=== PATIENT | female | born 1985 | race Caucasian/White ===

== ENCOUNTER 2021-08-27 02:25 | Inpatient (IN) | payer OTHER, MEDICAID ==
[2021-08-27] VITALS (27 sets, daily range): BP systolic 123–181; BP diastolic 80–123
[~2021-08-27 02:25] MED LIST: CLONIDINE0.1 PO; NORVASC 5 MG TAB5 MG PO
--- NOTE | 2021-08-27 03:58 | NUR ---
PT ARRIVED TO ICU AT 0356 PER EMS VIA [facility]. PT INTUBATED UPON ARRIVAL. DR DE LEON PAGED FOR ORDERS
[2021-08-27 05:44] LABS: BE -2.1 mmol/L (-2 to +3); PCO2 33.6 mmHg (35.0-45.0); pH 7.426 (7.340-7.450)
[2021-08-27 05:49] LABS: PO2 450.4 mmHg (75.0-100.0)
[2021-08-27 07:25] LABS: ABSOLUTE BASOPHILS 0.1 thou/uL (0.0-0.2); ABSOLUTE EOSINOPHILS 0.2 thou/uL (0.0-0.7); ABSOLUTE NEUTROPHILS 6.8 thou/uL (1.6-8.1); BASOPHILS 0.7 %; HEMATOCRIT 28.5 % (37.0-47.0); HEMOGLOBIN 9.4 gm/dL (12.0-15.0)
[2021-08-27 07:27] LABS: ABSOLUTE LYMPHOCYTES 2.4 thou/uL (0.8-5.3); ABSOLUTE MONOCYTES 0.5 thou/uL (0.0-1.2); EOSINOPHILS 1.8 %; LYMPHOCYTES 24.1 %; MCH 25.3 pg (26.0-34.0); MCV 76.7 fL (80.0-100.0); MONOCYTES 5.3 %; MPV 8.7 fl. (7.2-11.1); NUCLEATED RBCS 0 /100WBC; PLATELET COUNT* 354 thou/uL (150-400); POLYS 68.1 %; RBC 3.71 mil/uL (4.20-5.00); RDW-CV 16.2 % (10.5-14.5)
[2021-08-27 07:42] LABS: ALBUMIN 2.9 g/dL (3.4-5.0); CALCIUM 8.5 mg/dL (8.5-10.1); MAGNESIUM 2.3 mg/dL (1.8-2.4); POTASSIUM 4.6 mmol/L (3.5-5.1); TOTAL BILIRUBIN 0.2 mg/dL (<0.1-1.0); TOTAL PROTEIN 7.1 g/dL (6.4-8.2)
[2021-08-27 10:24] LABS: % SATURATION 6 % (20-39); IRON 18 ug/dL (50-175)
--- NOTE | 2021-08-27 12:15 | 2DMMODE ---
[place] [address] 2 D/M-MODE ECHOCARDIOGRAM Name: LOZANOSADAF Johnston Room: [address] ADM IN M.R.#: [id number] Admission: 08/27/21 Attend Phys: Cheri Soto Discharge: Date of : 83 Date of Service: 08/27/21 1214 Report #: [id number] THIS REPORT FOR: cc: FAM - No family physician/PCP FAM - No family physician/PCP Atif Light MD [facility] ~ APPROVED REPORT Study performed: 08/27/2021 11:03:41 EXAM: Comprehensive 2D, Doppler, and color-flow Echocardiogram Patient Location: In-Patient Room #: 003 Status: routine BSA: 1.89 HR: 91 bpm BP: 127/94 mmHg Rhythm: NSR Other Information Study Quality: Good Indications Arrhythmia 2D Dimensions IVSd: 10.61 (7-11mm) LVOT Diam: 20.61 (18-24mm) LVDd: 46.85 mm PWd: 7.84 (7-11mm) Ascending Ao: 29.69 (22-36mm) LVDs: 33.92 (25-40mm) Aortic Root: 31.58 mm Volumes Left Atrial Volume (Systole) LA ESV Index: 17.10 mL/m2 Aortic Valve AoV Peak Darren.: 1.13 m/s AO Peak Gr.: 5.11 mmHg LVOT Max P.79 mmHg AO Mean Gr.: 3.56 mmHg LVOT Mean P.22 mmHg LVOT Max V: 0.97 m/s AO V2 VTI: 15.09 cm LVOT Mean V: 0.70 m/s SIMEON (VTI): 3.21 cm2 LVOT V1 VTI: 14.52 cm AI Bennett: 2.68 m/s2 [place] [address] 2 D/M-MODE ECHOCARDIOGRAM Name: SADAF LOZANO Room: [address] ADM IN .R.#: [id number] Admission: 08/27/21 Attend Phys: Cheri Soto Discharge: Date of : 83 Date of Service: 08/27/21 1214 Report #: [id number] AI PHT: 532.28 ms Mitral Valve E/A Ratio: 0.79 MV Decel. Time: 200.33 ms MV E Max Darren.: 0.56 m/s MV PHT: 58.10 ms MVA (PHT): 3.79 cm2 TDI E/Lateral E': 8.00 E/Medial E': 8.00 Medial E' Darren.: 0.07 m/s Lateral E' Darren.: 0.07 m/s Pulmonary Valve PV Peak Darren.: 0.86 m/s PV Peak Gr.: 2.95 mmHg Tricuspid Valve RAP Estimate: 5.00 mmHg TR Peak Gr.: 17.88 mmHg RVSP: 23.00 mmHg PA Pressure: 23.00 mmHg Left Ventricle The left ventricle is normal size. Severe septal hypokinesis There is normal left ventricular wall thickness. Left ventricular systolic function is mildly decreased. LVEF is 40-45%. Grade I - abnormal relaxation pattern. Right Ventricle The right ventricle is normal size. The right ventricular systolic function is normal. Atria The left atrium size is normal. The right atrium size is normal. Aortic Valve The Aortic valve is sclerotic. Mild aortic regurgitation. There is no aortic valvular stenosis. Mitral Valve The mitral valve is normal in structure. There is no mitral valve regurgitation noted. No evidence of mitral valve stenosis. Tricuspid Valve The tricuspid valve is normal in structure[place] [address] 2 D/M-MODE ECHOCARDIOGRAM Name: SADAF LOZANO Room: [address] IN [facility].#: [id number] Admission: 08/27/21 Attend Phys: Cheri Soto Discharge: Date of : 83 Date of Service: 08/27/21 1214 Report #: [id number] regurgitation. No pulmonary hypertension. Pulmonic Valve The pulmonary valve is normal in structure. There is no pulmonic valvular regurgitation. Great Vessels The aortic root is normal in size. IVC is normal in size and collapses >50% with inspiration. Pericardium Trace pericardial effusion. Small left pleural effusion. <Conclusion> LVEF is 40-45%. Severe septal hypokinesis The Aortic valve is sclerotic. Mild aortic regurgitation. Trace pericardial effusion. <ELECTRONICALLY SIGNED> By: Atif Light MD, FACC 08/27/21 1214 13 13 Atif Light MD, FACC /INF
--- NOTE | 2021-08-27 12:41 | CON ---
[address] [address] CONSULTATION Name: SADAF LOZANO Room: [address] ADM IN M.R.#: [id number] Admission: 08/27/21 Attend Phys: Kyra Garcia Discharge: Date of : 83 Report #: [id number] THIS REPORT FOR: cc: FAM - No family physician/PCP FAM - No family physician/PCP Atif Light MD [facility] ~ DATE OF CONSULTATION: 08/27/2021 CARDIOLOGY CONSULTATION HISTORY OF PRESENT ILLNESS: The patient is a 35-year-old white female who I was asked to see in the ICU today after she was noted to be short of breath. Unfortunately, there are no family members available. Currently, the patient is currently intubated. The history is obtained from the chart that was done at [facility] yesterday. According to the notes from [facility], she presented to the emergency room in [place] yesterday with her boyfriend after she had a syncopal spell. She recently was diagnosed with COVID and had a cough. She has not been feeling well for several days. She was lying on the couch, felt dizzy, felt lightheaded. According to the boyfriend when the patient stood up, fell down, hit her head on the table and became unresponsive. He felt that her body was stiff, but there is no tremor activity. She apparently did lose her urine. She subsequently awakened. PAST MEDICAL HISTORY: Otherwise, significant for migraine headaches, hypertension. She has a history of illicit drug use. She does use methadone. ALLERGIES: She has no known drug allergies. SOCIAL HISTORY: She lives with a boyfriend in [facility]. She currently smokes, does use illicit drugs. REVIEW OF SYSTEMS: There is no history of stroke, asthma, liver disease, kidney disease, cancer, psychiatric illness. The patient's workup at the [facility] Emergency Room included potassium is only 2.8, creatinine 1.4. Her glucose was 89. Her liver function studies were normal. Troponin 0.02. Hemoglobin 12.6. Urine toxicology screen was positive for methadone. Urinalysis, trace protein. CT scan of the head was unremarkable. Because of respiratory insufficiency. The patient was intubated and transferred to [place] for further evaluation and treatment. IMPRESSION AND RECOMMENDATIONS: 1. Respiratory failure. The patient currently on a ventilator. 2. History of substance abuse. 3. Syncopal spell. No arrhythmia noted. The patient's workup at [facility] yesterday included an ECG showed [place] [address] CONSULTATION Name: SADAF LOZANO Room: [address] IN M.R.#: [id number] Admission: 08/27/21 Attend Phys: Kyra Garcia Discharge: Date of : 83 Report #: [id number] prolongation. The patient had an episode of a wide complex irregular tachycardia consistent with torsades last night. 4. Torsades de pointes. Recommend replacing potassium and magnesium. I would check echocardiogram. 5. Tobacco abuse. <ELECTRONICALLY SIGNED> By: Atif Light MD, FACC 08/27/21 1241 0831 [id number] Light MD, FACC /nt
--- NOTE | 2021-08-27 15:38 | CON ---
[address] [address] CONSULTATION Name: SADAF LOZANO Room: [address] ADM IN M.R.#: [id number] Admission: 08/27/21 Attend Phys: Kyra Garcia Discharge: Date of : 83 Report #: [id number] THIS REPORT FOR: cc: ANURADHA - No family physician/PCP FAM - No family physician/PCP Jay Andino MD ~ DATE OF CONSULTATION: 08/27/2021 REQUESTING PHYSICIAN: Edgar Fragoso MD INDICATION FOR CONSULTATION: Acute hypoxemic respiratory failure/ventilator management. HISTORY OF PRESENT ILLNESS: A 35-year-old female. She is already on the ventilator and no family is available. Information is therefore obtained from the chart. She is reported to have had COVID-19 three weeks ago. She also has a history of substance abuse including narcotics and is reported to be on methadone now 10 mg q.4 hours. The patient also does have a history of smoking. The patient is now reported to have had a syncopal episode, which was observed by her boyfriend. She is reported to have also had a brief seizure and a small amount of foam was reported to have coming out of her mouth. The patient initially was taken to [facility]. Over there she did have ventricular arrhythmias including a brief episode of torsades de pointes, verbally told that she briefly received chest compressions, although I have not found documentation of this. When she had these arrhythmias, her potassium was 2.8. Her magnesium at that time is noted to be 2.0. The patient was endotracheally intubated for unresponsiveness. Her urine toxicology screen was positive for methadone and negative for all other agents tested. Her D-dimer was only mildly elevated at 0.52. She has had significantly elevated blood pressures up to 208/118. At this time, the patient is stable on the ventilator. She is on 40% FiO2. She is on 5 of PEEP, assist control mode of ventilation. She is sedated with propofol. Blood pressure is only mildly elevated at 143/101. She is saturating 100% and she does not appear to be in any distress. The patient is unable to provide a further history or review of systems. She has had elevated blood pressures recently, unclear as to whether she has a previous history of hypertension. PAST MEDICAL HISTORY: COVID-19 three weeks ago, migraine headaches, also history of chronic back pain, idiopathic intracranial hypertension, anxiety, [place] [address] CONSULTATION Name: SADAF LOZANO Room: [address]#: [id number] Admission: 08/27/21 Attend Phys: Kyra Garcia Discharge: Date of : 83 Report #: [id number] SOCIAL HISTORY: There is an extensive history of smoking, still smokes. Also, history of substance abuse, currently on methadone. Information regarding alcohol use not available. ALLERGIES: No known drug allergies. CURRENT MEDICATIONS: List in [facility] reviewed. [facility]. Also, is on methadone. FAMILY HISTORY: No pertinent family history known at this time. PHYSICAL EXAMINATION: GENERAL: She is on propofol at 40. She was responding only to painful stimuli. VITAL SIGNS: Had a pulse of 81 and a blood pressure of 143/101. She is afebrile with a temperature of 36.2. She is saturating 100%. She is on a tidal volume of 450 and AC rate set at 18, she is breathing at 18, PEEP at 5, O2 saturation is 100%. HEENT: Head is normocephalic and atraumatic. Endotracheal tube is in good position. NECK: Does not show raised JVP, asymmetry, mass or lymph nodes. CHEST: Symmetrical expansion on inspection and palpation. On auscultation, chest is clear. HEART: Regular. There is no murmur. ABDOMEN: Soft and nontender. EXTREMITIES: Lower extremities show no edema and no calf tenderness. SKIN: Dry and intact. NEUROLOGIC: Moves all extremities bilaterally equally and spontaneously with no focal deficit identified. DIAGNOSTIC DATA: The patient's chest x-ray is reviewed. There are small areas of atelectasis bilaterally. No large areas of infiltrate are identified. Endotracheal tube is in good position. LABORATORY DATA: The patient's lab work, which does show elevated LFTs in [facility] reviewed. Note that her creatinine was 1.4 and potassium 2.8 at [facility], these have now been replaced. Her magnesium has remained normal. Arterial blood gas in [facility] reviewed. ASSESSMENT AND PLAN: 1. Acute respiratory failure. The patient is stable on the ventilator at this time. She is on propofol. I would go ahead and hold propofol and see if she wakes up and if she does wake up, we will go ahead and proceed with the weaning trial and see if we can extubate her. Note that she takes narcotics at home and [address] [address] CONSULTATION Name: SADAF LOZANO Room: [address] ADM IN Rebecca#: [id number] Admission: 08/27/21 Attend Phys: Kyra Garcia Discharge: Date of : 83 Report #: [id number] is on methadone 10 q.4 hours. Therefore, if she does wake up, I will go ahead and give her some fentanyl as I do not want her to go into withdrawal. In case she is not extubated today, then I will plan to start a fentanyl drip and then subsequently will work on tapering down off propofol. Note that her triglycerides are mildly elevated. However, using propofol for a limited period of time appears to be low risk in this patient's case. 2. Ventricular arrhythmias/torsades de pointes. Note that at the time of these arrhythmias occurred, the patient's potassium was 2.8 and a creatinine was 1.4, both of these are normal. Magnesium was normal at that time and remains normal. Cardiology Service is on the case. Echocardiogram has been performed and is pending at this time. 3. Syncopal episode/possible seizure. See discussion as above. Neurology Service is on the case. I will investigate further as to whether there is any possibility of aspiration. We will go ahead and obtain a nasal swab for MRSA as well as a sputum culture. If doubt remains regarding this, then I will go ahead and start her on broad spectrum antibiotics and I will avoid agents that prolong QT interval. 4. Recent COVID-19. 5. History of narcotic use, on methadone at home. 6. History of smoking, not actively bronchospastic. For now, I only ordered p.r.n. Xopenex. We will follow. 7. Deep venous thrombosis prophylaxis, on Lovenox. The CT head performed at [facility], which does not show abnormalities. 8. Gastrointestinal prophylaxis, Protonix. The patient is critically ill at this time. Total time spent providing critical care to this patient today exceeds 40 minutes. <ELECTRONICALLY SIGNED> By: Jay Andino MD 08/27/21 1538 1103 [id number] Andino MD /nt
[2021-08-28] VITALS (14 sets, daily range): BP systolic 140–178; BP diastolic 91–114
[2021-08-28 03:46] LABS: ABSOLUTE BASOPHILS 0.1 thou/uL (0.0-0.2); ABSOLUTE EOSINOPHILS 0.3 thou/uL (0.0-0.7); ABSOLUTE LYMPHOCYTES 2.5 thou/uL (0.8-5.3); ABSOLUTE MONOCYTES 0.5 thou/uL (0.0-1.2); BASOPHILS 0.9 %; EOSINOPHILS 4.1 %; HEMATOCRIT 26.1 % (37.0-47.0); HEMOGLOBIN 8.9 gm/dL (12.0-15.0); LYMPHOCYTES 30.1 %; MCH 25.8 pg (26.0-34.0); MCHC 33.9 g/dL (28.0-37.0); MCV 76.2 fL (80.0-100.0); MONOCYTES 5.9 %; MPV 8.2 fl. (7.2-11.1); NUCLEATED RBCS 0 /100WBC; PLATELET COUNT* 321 thou/uL (150-400); RBC 3.43 mil/uL (4.20-5.00); WBC 8.5 thou/uL (4.0-11.0)
[2021-08-28 04:00] LABS: ALBUMIN 2.9 g/dL (3.4-5.0); ALKALINE PHOSPHATASE 59 U/L (46-116); ANION GAP 12 mmol/L (7-16); BUN 9 mg/dL (7-18); CALCIUM 8.1 mg/dL (8.5-10.1); CHLORIDE 102 mmol/L (98-107); CHOLESTEROL 127 mg/dL (<200); CO2 23 mmol/L (21-32); CREATININE 1.1 mg/dL (0.6-1.3); GLUCOSE 81 mg/dL (70-99); HDL CHOLESTEROL 25 mg/dL (>40); LDL CHOLESTEROL 69 mg/dL (<100); MAGNESIUM 1.8 mg/dL (1.8-2.4); POTASSIUM 3.4 mmol/L (3.5-5.1); SGOT 169 U/L (15-37); SGPT 186 U/L (30-65); SODIUM 137 mmol/L (136-145); TC:HDL 5.1 Ratio (Not establshd); TOTAL BILIRUBIN 0.3 mg/dL (<0.1-1.0); TOTAL PROTEIN 6.8 g/dL (6.4-8.2); TRIGLYCERIDE 165 mg/dL (<150); VLDL 33 mg/dL (<40)
[2021-08-28 04:04] LABS: PHOSPHORUS* 2.8 mg/dL (2.5-4.9)
[2021-08-28 05:22] LABS: SERUM ASSESSMENT CLEAR
[2021-08-28 19:07] LABS: HEPATITIS B SURFACE AG Negative (Negative)
[2021-08-29 00:17] VITALS: BP 153/88
[2021-08-29 04:12] LABS: ABSOLUTE EOSINOPHILS 0.8 thou/uL (0.0-0.7); ABSOLUTE LYMPHOCYTES 3.1 thou/uL (0.8-5.3); ABSOLUTE MONOCYTES 0.6 thou/uL (0.0-1.2); ABSOLUTE NEUTROPHILS 5.4 thou/uL (1.6-8.1); BASOPHILS 0.2 %; EOSINOPHILS 7.9 %; HEMATOCRIT 25.3 % (37.0-47.0); HEMOGLOBIN 8.4 gm/dL (12.0-15.0); LYMPHOCYTES 31.2 %; MCH 25.4 pg (26.0-34.0); MCHC 33.2 g/dL (28.0-37.0); MCV 76.6 fL (80.0-100.0); MPV 8.3 fl. (7.2-11.1); NUCLEATED RBCS 0 /100WBC; PLATELET COUNT* 289 thou/uL (150-400); POLYS 54.7 %; WBC 9.9 thou/uL (4.0-11.0)
[2021-08-29 04:26] LABS: ALBUMIN 2.8 g/dL (3.4-5.0); CALCIUM 8.3 mg/dL (8.5-10.1); POTASSIUM 4.4 mmol/L (3.5-5.1); TOTAL BILIRUBIN 0.3 mg/dL (<0.1-1.0); TOTAL PROTEIN 6.9 g/dL (6.4-8.2)
[2021-08-29 04:29] VITALS: BP 157/86
--- NOTE | 2021-08-29 04:44 | NUR ---
ASSUMED CARE OF PT AFTER REPORT AT 1930. PT A&OX4. VSS. PHYSICAL ASSESSMENT COMPLETED AND CHARTED. PT ON RA. PT TRACING SR ON TELE. PT UPSTANDBY TO RESTROOM. PT COMPLAINED OF CHEST & RIB PAIN-MED GIVEN PER JAN. SEIZURE PRECAUTION OBSERVED. PT ABLE TO SLEEP WELL ON BED. FALL PRECAUTIONS IN PLACE. CALL LIGHT WITHIN REACH.
--- NOTE | 2021-08-29 05:34 | NUR ---
RECIEVED REPORT FROM STEVE LYNN. PT TRANSFERRED TO RM 102. PT A&OX4. VSS. PHYSICAL ASSESSMENT COMPLETED AND CHARTED. PT ON RA. PT TRACING SR ON TELE. PT UPSTANDBY TO RESTROOM. PT COMPLAINED OF CHEST & RIB PAIN -MED GIVEN PER JAN. SEIZURE PRECAUTION OBSERVED. PT ABLE TO SLEEP WELL ON BED. FALL PRECAUTIONS IN PLACE. CALL LIGHT WITHIN REACH.
[2021-08-29 08:00] VITALS: BP 178/106
[2021-08-29 12:15] VITALS: BP 135/88
[2021-08-29] MEDS ORDERED: LOPRESSOR50 PO (12:57)
[2021-08-29] MEDS ORDERED: AMOX TR-K CLV1 EAC4 PO (12:57)
[2021-08-29 14:07] VITALS: BP 135/88
--- NOTE | 2021-08-29 15:22 | NUR ---
RECEIVED REPORT AROUND 0715. ASSUMED CARE. VS AND ASSESSMENT CHARTED. IV INTACT THIS AM. HEART MONITOR ATTACHED AT SR THIS AM. MEDS GIVEN PER JAN. HOURLY ROUNDING PERFORMED. CARDIOLOGY SIGNED OFF. D/C RECEIVED. IV TAKEN OUT. HEART MONITOR OFF. DISCHARGE PAPERWORK GIVEN TO PT. COMMUNICATED UNDERSTANDING. SCRIPTS CALLED INTO [facility] ON [address] PT LEFT VIA WHEEL CHAIR WITH NURSING STAFF AND ALL BELONGINGS OFF UNIT AT 1520.
--- NOTE | 2021-08-30 10:28 | EKG ---
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 : 1985 Requested By: Atif Light Order Number: [id number] Aundrea MD: Twan Cardoza Measurements Intervals [place] Rate: 71 P: 19 SD: 161 QRS: -5 QRSD: 97 T: -17 QT: 492 QTc: 535 Interpretive Statements Sinus rhythm Abnormal T, consider ischemia, anterior leads Prolonged QT interval No previous ECG available for comparison Electronically Signed On 08-30-2021 10:28:28 CDT by Twan Cardoza [email or web address] <ELECTRONICALLY SIGNED> By: Twan Cardoza MD, LOCATED WITHIN [facility] 08/30/21 1028 1630 1630 Twan Cardoza MD, [facility]ATED [facility] /EPI
== END 2021-08-29 15:20 | disposition home or self-care (01) | DRG 208 ==
LOC: M.ICU 02:25 → M.ORTHSURG 08-28 20:30
PROVIDERS: Internal Medicine; Internal Medicine Cardiovascular Disease; Internal Medicine Critical Care Medicine; Psychiatry & Neurology Neurology; ADMIT Internal Medicine; ATTEND Internal Medicine
PROC: 0BH17EZ Insertion of Endotracheal Airway into Trachea, Via Natural or Artificial Opening (ICD-10-PCS; principal; 2021-08-27)
PROC: 5A1935Z Respiratory Ventilation, Less than 24 Consecutive Hours (ICD-10-PCS; principal; 2021-08-27)
DX: J96.00 Acute respiratory failure, unspecified whether with hypoxia or hypercapnia (principal); I46.9 Cardiac arrest, cause unspecified; I47.2 Ventricular tachycardia; R56.9 Unspecified convulsions; I10 Essential (primary) hypertension; D64.9 Anemia, unspecified; I49.9 Cardiac arrhythmia, unspecified; R94.31 Abnormal electrocardiogram [ECG] [EKG]; Z79.891 Long term (current) use of opiate analgesic